=== PATIENT | male | born 1945 | race Caucasian/White ===

== ENCOUNTER → 2018-01-01 | Outpatient (CLI) | payer MEDICARE, BC ==
[2011-11-27 17:10] VITALS: BP 146/86
[~2018-01-01] MED LIST: HCTZ 25MG25 MG PO; NORCO 325 MG-51 TA1 PO
== END ==
LOC: RAD 09:00
DX: Z13.6 Encounter for screening for cardiovascular disorders (principal); F17.200 Nicotine dependence, unspecified, uncomplicated

== ENCOUNTER → 2019-01-07 | Outpatient (CLI) | payer MEDICARE, BC ==
[2011-11-27 17:10] VITALS: BP 146/86
== END ==
LOC: RAD 08:47
DX: Z13.6 Encounter for screening for cardiovascular disorders (principal); Z87.891 Personal history of nicotine dependence

== ENCOUNTER → 2021-05-19 | Outpatient (CLI) | payer MEDICARE, BC | LOC: RAD 12:51 | DX: I25.10 Atherosclerotic heart disease of native coronary artery without angina pectoris (principal); R91.1 Solitary pulmonary nodule ==

== ENCOUNTER → 2024-07-08 | Outpatient (CLI) | payer MEDICARE, BC | LOC: RAD 11:02 | DX: R91.8 Other nonspecific abnormal finding of lung field (principal); R06.00 Dyspnea, unspecified ==

== ENCOUNTER → 2024-07-12 | Outpatient (CLI) | payer MEDICARE, BC ==
[~2024-07-12] MED LIST changes: +Iohexol 300 - 100 ML VIAL IV ONE
== END ==
LOC: RAD 09:58
DX: I70.0 Atherosclerosis of aorta (principal)
CPT/HCPCS: Q9967

== ENCOUNTER → 2024-11-11 | Outpatient (CLI) | payer MEDICARE, BC ==
[~2024-11-11] MED LIST changes: -Iohexol 300 - 100 ML VIAL IV ONE
== END ==
LOC: RAD 08:06
DX: S92.354A Nondisplaced fracture of fifth metatarsal bone, right foot, initial encounter for closed fracture (principal); W01.0XXA Fall on same level from slipping, tripping and stumbling without subsequent striking against object, initial encounter